=== PATIENT | male | born 1930 | race Caucasian/White ===

== ENCOUNTER 2018-05-09 11:24 | Inpatient (IN) | payer MEDICARE, OTHER ==
[2018-05-09] VITALS (12 sets, daily range): BP systolic 100–170; BP diastolic 39–81
[~2018-05-09] VITALS: Ht 167.6 cm; Wt 66.1 kg
[~2018-05-09 11:24] MED LIST: ASCO500T12 PO; BETA10003 PO; CHOL200085 PO; CYAN1TAB22 PO; EZET1TAB64 PO; FLAX10004 PO; METO50TA82 PO; MULT-257 PO; TRAN4TAB23 PO; VENE100T PO; ZINC50TA2 PO
--- NOTE | 2018-05-09 11:40 | NUR ---
PT IN BED. CARDIAC, BP AND O2 MONITORING IN PLACE. CALL LIGHT IN REACH. PT IN MASK TILL RESULTS OF BLOOD DRAW RESULT.
--- NOTE | 2018-05-09 11:57 | NUR ---
report taken from HAJA Moore at bedside. pt a&o, resps even and unlabored. pt denies pain at this time. sinus tach rate 90's on cardiac care unit nurse with no ectopy. call light in reach. family at bedside. pt and family updated with POC. awaiting lab and cxr results at this time.
[2018-05-09 11:58] LABS: INTERNATIONAL NORMALIZED RATIO 1.09 (0.93-1.1); PROTHROMBIN TIME 11.5 Seconds (9.6-11.5)
[2018-05-09 12:02] LABS: ALANINE AMINOTRANSFERASE 18 U/L (12-78); ALBUMIN 3.4 g/dL (3.4-5.0); ANION GAP 11 mmol/L (5-15); CHLORIDE 112 mmol/L (98-107); CREATININE 1.33 mg/dL (0.7-1.3); MEAN CORPUSCULAR HEMOGLOBIN 38.6 pg (27.5-34.5); MEAN CORPUSCULAR HGB CONC 36.2 g/dL (33.2-36.2); MEAN CORPUSCULAR VOLUME 106.5 fL (81-97)
[2018-05-09 12:04] LABS: RED CELL DISTRIBUTION WIDTH 29.1 % (9.4-14.8)
[2018-05-09 12:05] LABS: HEMOGRAM NOTE RECHECKED
[2018-05-09 12:06] LABS: ALKALINE PHOSPHATASE 78 U/L (45-117); BILIRUBIN,TOTAL 1.2 mg/dL (0.2-1.0); TOTAL PROTEIN 6.2 g/dL (6.4-8.2)
[2018-05-09] MEDS ORDERED: SAW PALMETTO (12:06)
--- NOTE | 2018-05-09 12:07 | NUR ---
EDMD Farris notified wbc 1.7, hemoglobin 4.3, hct 11.8, critical low platelet value pending . Protective isolation precautions in place.
[2018-05-09 12:09] LABS: TROPONIN I 0.179 ng/mL (0.000-0.045)
--- NOTE | 2018-05-09 12:17 | NUR ---
EDMD Brenton notified trop level 0.17. Pt states he has been SOB with exertion. EDMD notified. Per MD, no ddimer indicated at this time. EDMD at bedside to update pt and family with results.
[2018-05-09 12:23] LABS: MD YES; MEAN PLATELET VOLUME 10.6 fL (7.4-10.4)
[2018-05-09 12:25] LABS: PLATELET COUNT 21 x10^3/uL (130-400)
[2018-05-09 12:26] LABS: LYMPH#(MANUAL) 0.82 x10^3/uL (1-3.4); LYMPHS% (MANUAL) 48 % (22-44); NRBC % (MANUAL) 2 % (0-1); SEG#(MANUAL) 0.88 x10^3/uL (1.8-6.8); SEGS% (MANUAL) 52 % (42-75)
[2018-05-09 12:27] LABS: <PLATELET ESTIMATE> DECREASED; ANISOCYTOSIS 2+; OVALOCYTES 1+; POLYCHROMASIA 1+; TEAR DROPS 1+
[2018-05-09 12:29] LABS: MICROCYTOSIS 1+; SCHISTOCYTES 1+
[2018-05-09 12:32] LABS: <PLT MORPHOLOGY> NORMAL PLT MORPH
--- NOTE | 2018-05-09 12:37 | NUR ---
MAYRA MCALLISTER NOTIFIED PLATELET LEVEL 21. BLOOD CONSENT FORM SIGNED BY MD AND PATIENT.
--- NOTE | 2018-05-09 12:46 | NUR ---
BLOOD REQUESTED FROM BLOOD BANK
[2018-05-09] MEDS ORDERED: CALCIUM PO (12:55)
[2018-05-09] MEDS ORDERED: POTASSIUM PO (12:55)
--- NOTE | 2018-05-09 13:08 | NUR ---
BLOOD TRANSFUSION INITIATED, RN MONITORING PT 1:1 PER POLICY. PT A&O, RESPS EVEN AND UNLABORED, PT DENIES PAIN. SINUS TACH RATE 90'S ON MECHANICAL SPREADER OPERATOR, NO ECTOPY.
--- NOTE | 2018-05-09 13:23 | NUR ---
PT TOLERATING TRANSFUSION WELL. PT A&O, RESPS EVEN AND UNLABORED. PT DENIES PAIN. SINUS TACH RATE 90'S WITH NO ECTOPY ON MONITOR. PT DENIES ANY SOB/ITCHNIESS OR OTHER SX. PIV SITE CDI WITH NO SWELLING, REDNESS OR LEAKAGE. FAMILY AT BEDSIDE. AWAITING CARDIAC TELE ROOM ASSIGNMENT AND TRANSPORT.
[2018-05-09] MEDS ORDERED: ENALAPRILAT 1.25 MG/ML, 2ML IVPush PRN (14:00)
[2018-05-09] MEDS ORDERED: DOCUSATE 100 MG CAPSULE PO PRN (14:00)
[2018-05-09] MEDS ORDERED: NITROGLYCERIN 0.4 MG BOTTLE (25 TABS) SL PRN (14:00)
[2018-05-09] MEDS ORDERED: ONDANSETRON ODT 4 MG PO PRN (14:00)
[2018-05-09] MEDS ORDERED: ACETAMINOPHEN 325 MG TABLET PO PRN (14:00)
[2018-05-09] MEDS ORDERED: NITROGLYCERIN 0.4 MG/SPRAY SL PRN (14:00)
[2018-05-09 14:15] LABS: ABSOLUTE RETICS # 0.035 x10^6/uL (0.5-1.5); RETICULOCYTE COUNT % 3.09 % (0.5-1.5)
[2018-05-09 14:24] LABS: RED BLOOD COUNT 1.14 x10^6/uL (4.38-5.82)
--- NOTE | 2018-05-09 14:40 | NUR ---
PT CONTINUES TO TOLERATE BLOOD TRANSFUSION WELL. PT DENIES PAIN. PT A&O, RESPS EVEN AND UNLABORED. VSS. SINUS TACH RATE 90'S ON NEEDLE LOOM TENDER WITH NO ECTOPY. PT HAS NO COMPLAINTS AT THIS TIME.
[2018-05-09 15:27] LABS: FOLATE LEVEL > 20.0 ng/mL (3.1-17.5)
--- NOTE | 2018-05-09 15:50 | NUR ---
FIRST UNIT PRBCS COMPLETE. LUNG SOUNDS REMAIN CLEAR. PT A&O, RESPS EVEN AND UNLABORED. PIV SITE CDI WITH NO REDNESS/EDEMA. SECOND UNIT BLOOD REQUESTED. STILL AWAITING CARDIAC TELE BED ASSIGNMENT AT THIS TIME.
--- NOTE | 2018-05-09 16:17 | NUR ---
BLOOD TRANSFUSION INITIATED, RN MONITORING PT 1:1 PER POLICY. PT A&O, RESPS EVEN AND UNLABORED, PT DENIES PAIN. SINUS TACH RATE 90'S ON KILN LABOURER, NO ECTOPY.
--- NOTE | 2018-05-09 16:19 | NUR ---
pt urinating in urinal at this time. denies pain. sinus tach rate 100's on gambling monitor, no ectopy at this time.
--- NOTE | 2018-05-09 16:21 | NUR ---
REPORT GIVEN VINAYAK SMYTH.
--- NOTE | 2018-05-09 16:41 | NUR ---
SECOND UNIT PRBCS INFUSING. PIV SITE CDI WITH NO REDNESS OR EDEMA. PT DENIES ANY SX. PT A&O, RESPS EVEN AND UNLABORED. PT DENIES PAIN.
[2018-05-09] MEDS: METOPROLOL TARTRATE 50 MG TABLET PO SCH (20:40)
[2018-05-09] MEDS: SIMVASTATIN 40 MG TABLET PO SCH (20:40)
[2018-05-09] MEDS: SODIUM CHLORIDE 0.9% 1,000 ML IV SCH (20:41)
[2018-05-10] VITALS (9 sets, daily range): BP systolic 126–146; BP diastolic 57–75
[2018-05-10 05:04] LABS: MEAN CORPUSCULAR HEMOGLOBIN 33.8 pg (27.5-34.5); MEAN CORPUSCULAR VOLUME 96.7 fL (81-97); MEAN PLATELET VOLUME 10.6 fL (7.4-10.4); RED BLOOD COUNT 2.33 x10^6/uL (4.38-5.82)
[2018-05-10 05:11] LABS: ALANINE AMINOTRANSFERASE 30 U/L (12-78); ALBUMIN 3.1 g/dL (3.4-5.0); ANION GAP 10 mmol/L (5-15); CALCIUM 6.9 mg/dL (8.5-10.1); CHLORIDE 112 mmol/L (98-107); CHOLESTEROL, TOTAL 86 mg/dL (140-239); CREATININE 1.08 mg/dL (0.7-1.3)
[2018-05-10 05:14] LABS: ALKALINE PHOSPHATASE 77 U/L (45-117); BILIRUBIN,TOTAL 3.3 mg/dL (0.2-1.0); CHOL/HDL RATIO 2.5; HDL CHOL % 41 % (26-37); HDL CHOLESTEROL (DIRECT) 35 mg/dL (40-60); LDL CHOLESTEROL,CALCULATED 27 mg/dL (54-169); LDL/HDL RATIO 0.8 (0.5-3.0); TOTAL PROTEIN 5.6 g/dL (6.4-8.2); TRIGLYCERIDES 121 mg/dL (50-200); VLDL CHOLESTEROL 24 mg/dL (0-25)
[2018-05-10 05:14] LABS: PLATELET COUNT 21 x10^3/uL (130-400)
[2018-05-10 05:56] LABS: BASOPHILS % (AUTO) 0 % (0-1); EOSINOPHILS % (AUTO) 0 % (1-7); LYMPHOCYTES # (AUTO) 0.73 x10^3/uL (1-3.4); LYMPHOCYTES % (AUTO) 55 % (22-44); MD SCAN; MONOCYTES # (AUTO) 0.01 x10^3/uL (0.2-0.8); MONOCYTES % (AUTO) 1 % (2-9); NEUTROPHILS # (AUTO) 0.58 x10^3/uL (1.8-6.8); NEUTROPHILS % (AUTO) 44 % (42-75)
[2018-05-10] MEDS: MULTIVITS,STRESS FORMULA 1 TABLET PO SCH (08:54)
[2018-05-10] MEDS: SODIUM CHLORIDE 0.9% 1,000 ML IV SCH (08:54)
[2018-05-10] MEDS: MULTIVITAMINS/MINERALS TABLET PO SCH (08:54)
[2018-05-10] MEDS: EZETIMIBE 10 MG TABLET PO SCH (08:55)
[2018-05-10] MEDS: CHOLECALCIFEROL 5,000u TAB PO SCH (08:55)
[2018-05-10] MEDS: METOPROLOL TARTRATE 50 MG TABLET PO SCH ×2 (08:55→20:32)
[2018-05-10] MEDS: SIMVASTATIN 40 MG TABLET PO SCH (20:32)
[2018-05-11] VITALS (14 sets, daily range): BP systolic 103–152; BP diastolic 61–86
[2018-05-11 05:22] LABS: ANION GAP 9 mmol/L (5-15); CALCIUM 7.1 mg/dL (8.5-10.1); CHLORIDE 114 mmol/L (98-107); MEAN CORPUSCULAR HEMOGLOBIN 34.8 pg (27.5-34.5); MEAN CORPUSCULAR HGB CONC 35.8 g/dL (33.2-36.2); MEAN CORPUSCULAR VOLUME 97.2 fL (81-97); RED BLOOD COUNT 1.69 x10^6/uL (4.38-5.82); RED CELL DISTRIBUTION WIDTH 22.1 % (9.4-14.8)
[2018-05-11 05:23] LABS: CREATININE 1.12 mg/dL (0.7-1.3)
[2018-05-11 05:31] LABS: PLATELET COUNT 20 x10^3/uL (130-400)
[2018-05-11 06:19] LABS: BASOPHILS % (AUTO) 0 % (0-1); EOSINOPHILS # (AUTO) 0.01 x10^3/uL (0-0.4); EOSINOPHILS % (AUTO) 1 % (1-7); LYMPHOCYTES # (AUTO) 0.67 x10^3/uL (1-3.4); LYMPHOCYTES % (AUTO) 55 % (22-44); MD MORPH REVIEW ONLY; MONOCYTES # (AUTO) 0.01 x10^3/uL (0.2-0.8); MONOCYTES % (AUTO) 1 % (2-9); NEUTROPHILS # (AUTO) 0.52 x10^3/uL (1.8-6.8); NEUTROPHILS % (AUTO) 43 % (42-75)
[2018-05-11 06:20] LABS: ANISOCYTOSIS 2+
[2018-05-11 06:21] LABS: MICROCYTOSIS 1+; OVALOCYTES 1+; POLYCHROMASIA 1+; SCHISTOCYTES 1+
[2018-05-11 06:22] LABS: <PLATELET ESTIMATE> DECREASED; <PLT MORPHOLOGY> NORMAL PLT MORPH
[2018-05-11] MEDS ORDERED: MAGNESIUM SULFATE PMX 2GM/50ML 50 ML IV ONE (08:00)
[2018-05-11] MEDS ORDERED: PANTOPRAZOLE 80 MG in SODIUM CHLORIDE 0.9% 50 ML IV ONE (09:00)
[2018-05-11] MEDS: MULTIVITS,STRESS FORMULA 1 TABLET PO SCH (09:28)
[2018-05-11] MEDS: CHOLECALCIFEROL 5,000u TAB PO SCH (09:28)
[2018-05-11] MEDS: MULTIVITAMINS/MINERALS TABLET PO SCH (09:28)
[2018-05-11] MEDS: METOPROLOL TARTRATE 50 MG TABLET PO SCH ×2 (09:28→19:59)
[2018-05-11] MEDS: EZETIMIBE 10 MG TABLET PO SCH (09:37)
[2018-05-11 09:44] LABS: ALBUMIN 2.4 g/dL (3.4-5.0); BILIRUBIN, DIRECT 0.3 mg/dL (0.1-0.2)
[2018-05-11 09:46] LABS: BILIRUBIN,INDIRECT 1.3 mg/dL (0.0-2.0); BILIRUBIN,TOTAL 1.6 mg/dL (0.2-1.0); TOTAL PROTEIN 4.5 g/dL (6.4-8.2)
[2018-05-11] MEDS: PANTOPRAZOLE 80 MG in SODIUM CHLORIDE 0.9% 100 ML IV SCH ×2 (10:40→20:10)
[2018-05-11 18:25] LABS: OCCULT BLOOD POSITIVE (NEGATIVE)
[2018-05-11] MEDS: SIMVASTATIN 40 MG TABLET PO SCH (19:58)
[2018-05-12] VITALS (7 sets, daily range): BP systolic 125–152; BP diastolic 61–74
[2018-05-12] MEDS: PANTOPRAZOLE 80 MG in SODIUM CHLORIDE 0.9% 100 ML IV SCH ×2 (04:55→15:48)
[2018-05-12 05:26] LABS: ALBUMIN 2.6 g/dL (3.4-5.0); ANION GAP 6 mmol/L (5-15); CALCIUM 7.2 mg/dL (8.5-10.1); CHLORIDE 117 mmol/L (98-107)
[2018-05-12 05:30] LABS: ALANINE AMINOTRANSFERASE 26 U/L (12-78); ALKALINE PHOSPHATASE 62 U/L (45-117); BILIRUBIN,TOTAL 2.5 mg/dL (0.2-1.0); CREATININE 1.17 mg/dL (0.7-1.3); TOTAL PROTEIN 4.8 g/dL (6.4-8.2)
[2018-05-12 05:40] LABS: MEAN CORPUSCULAR HEMOGLOBIN 32.6 pg (27.5-34.5); MEAN CORPUSCULAR HGB CONC 35.4 g/dL (33.2-36.2); MEAN CORPUSCULAR VOLUME 92.1 fL (81-97); MEAN PLATELET VOLUME 9.6 fL (7.4-10.4); RED BLOOD COUNT 2.28 x10^6/uL (4.38-5.82); RED CELL DISTRIBUTION WIDTH 17.4 % (9.4-14.8)
[2018-05-12 05:57] LABS: PLATELET COUNT 36 x10^3/uL (130-400)
[2018-05-12 06:19] LABS: MD YES
[2018-05-12 06:22] LABS: EOS#(MANUAL) 0.02 x10^3/uL (0.0-0.4); EOS% (MANUAL) 1 % (1-7); LYMPH#(MANUAL) 0.84 x10^3/uL (1-3.4); LYMPHS% (MANUAL) 56 % (22-44); MONOS#(MANUAL) 0.05 x10^3/uL (0.3-2.7); MONOS% (MANUAL) 3 % (2-9); NRBC % (MANUAL) 1 % (0-1); SEGS% (MANUAL) 40 % (42-75)
[2018-05-12 06:23] LABS: ANISOCYTOSIS 1+; MICROCYTOSIS 1+; OVALOCYTES 1+; POLYCHROMASIA 1+
[2018-05-12 06:25] LABS: SCHISTOCYTES 1+
[2018-05-12 06:26] LABS: <PLATELET ESTIMATE> DECREASED; <PLT MORPHOLOGY> NORMAL PLT MORPH
[2018-05-12] MEDS: MULTIVITS,STRESS FORMULA 1 TABLET PO SCH (07:49)
[2018-05-12] MEDS: MULTIVITAMINS/MINERALS TABLET PO SCH (07:50)
[2018-05-12] MEDS: EZETIMIBE 10 MG TABLET PO SCH (07:50)
[2018-05-12] MEDS: CHOLECALCIFEROL 5,000u TAB PO SCH (07:50)
[2018-05-12] MEDS: METOPROLOL TARTRATE 50 MG TABLET PO SCH ×2 (07:50→20:45)
[2018-05-12] MEDS ORDERED: LEVO25TA45 PO (07:59)
[2018-05-12] MEDS: LEVOTHYROXINE 25 MCG TABLET PO SCH (10:38)
[2018-05-12] MEDS: SIMVASTATIN 40 MG TABLET PO SCH (20:45)
[2018-05-13 01:30] VITALS: BP 152/64
[2018-05-13] MEDS: PANTOPRAZOLE 80 MG in SODIUM CHLORIDE 0.9% 100 ML IV SCH (01:36)
[2018-05-13 01:55] LABS: MEAN CORPUSCULAR HEMOGLOBIN 32.6 pg (27.5-34.5); MEAN CORPUSCULAR HGB CONC 35.5 g/dL (33.2-36.2); MEAN PLATELET VOLUME 9.5 fL (7.4-10.4); RED BLOOD COUNT 2.73 x10^6/uL (4.38-5.82); RED CELL DISTRIBUTION WIDTH 16.4 % (9.4-14.8)
[2018-05-13 01:57] LABS: PLATELET COUNT 34 x10^3/uL (130-400)
[2018-05-13 01:58] LABS: ALANINE AMINOTRANSFERASE 27 U/L (12-78); ALBUMIN 2.8 g/dL (3.4-5.0); ANION GAP 5 mmol/L (5-15); CALCIUM 7.2 mg/dL (8.5-10.1); CHLORIDE 114 mmol/L (98-107); CREATININE 1.14 mg/dL (0.7-1.3)
[2018-05-13 01:59] LABS: MD YES
[2018-05-13 02:01] LABS: ALKALINE PHOSPHATASE 75 U/L (45-117); BILIRUBIN,TOTAL 2.1 mg/dL (0.2-1.0); TOTAL PROTEIN 5.2 g/dL (6.4-8.2)
[2018-05-13 02:14] LABS: BAND#(MANUAL) 0.01 x10^3/uL; BANDS%(MANUAL) 1 % (0-7); LYMPH#(MANUAL) 0.86 x10^3/uL (1-3.4); LYMPHS% (MANUAL) 66 % (22-44); SEG#(MANUAL) 0.43 x10^3/uL (1.8-6.8); SEGS% (MANUAL) 33 % (42-75)
[2018-05-13 02:15] LABS: <PLATELET ESTIMATE> DECREASED; <PLT MORPHOLOGY> NORMAL PLT MORPH; ANISOCYTOSIS 1+; MICROCYTOSIS 1+; OVALOCYTES 1+; POLYCHROMASIA 1+; SCHISTOCYTES 1+
[2018-05-13] MEDS: LEVOTHYROXINE 25 MCG TABLET PO SCH (05:21)
[2018-05-13 07:14] VITALS: BP 149/67
[2018-05-13] MEDS: TBO-FILGRASTIM 480 MCG/0.8 ML SQ SCH (10:13)
[2018-05-13] MEDS: MULTIVITAMINS/MINERALS TABLET PO SCH (10:15)
[2018-05-13] MEDS: CHOLECALCIFEROL 5,000u TAB PO SCH (10:15)
[2018-05-13] MEDS: MULTIVITS,STRESS FORMULA 1 TABLET PO SCH (10:15)
[2018-05-13] MEDS: EZETIMIBE 10 MG TABLET PO SCH (10:15)
[2018-05-13] MEDS: METOPROLOL TARTRATE 50 MG TABLET PO SCH ×2 (10:16→20:30)
[2018-05-13] MEDS: PANTOPROZOLE 40MG TABLET PO SCH (11:53)
[2018-05-13 13:38] VITALS: BP 146/69
[2018-05-13] MEDS ORDERED: SODIUM CHLORIDE NASAL SPRAY 45ML BOTTLE NAS PRN (14:00)
[2018-05-13] MEDS: SIMVASTATIN 40 MG TABLET PO SCH (20:30)
[2018-05-13 20:42] VITALS: BP 154/64
[2018-05-14 01:44] VITALS: BP 147/59
[2018-05-14 05:39] LABS: MEAN CORPUSCULAR HGB CONC 34.2 g/dL (33.2-36.2); MEAN CORPUSCULAR VOLUME 93.6 fL (81-97); RED BLOOD COUNT 2.65 x10^6/uL (4.38-5.82); RED CELL DISTRIBUTION WIDTH 16.2 % (9.4-14.8)
[2018-05-14] MEDS: LEVOTHYROXINE 25 MCG TABLET PO SCH (05:44)
[2018-05-14] MEDS: PANTOPROZOLE 40MG TABLET PO SCH (05:44)
[2018-05-14 05:45] LABS: ALBUMIN 2.7 g/dL (3.4-5.0); ANION GAP 5 mmol/L (5-15); CALCIUM 7.7 mg/dL (8.5-10.1); CHLORIDE 111 mmol/L (98-107)
[2018-05-14 06:08] LABS: MEAN PLATELET VOLUME 9.5 fL (7.4-10.4)
[2018-05-14 06:10] LABS: PLATELET COUNT 24 x10^3/uL (130-400)
[2018-05-14 06:11] LABS: MD YES
[2018-05-14 06:17] LABS: BAND#(MANUAL) 0.16 x10^3/uL; BANDS%(MANUAL) 10 % (0-7); BASOS#(MANUAL) 0.02 x10^3/uL (0-0.1); BASOS% (MANUAL) 1 % (0-1); EOS#(MANUAL) 0.02 x10^3/uL (0.0-0.4); EOS% (MANUAL) 1 % (1-7); LYMPH#(MANUAL) 0.78 x10^3/uL (1-3.4); LYMPHS% (MANUAL) 49 % (22-44); REACTIVE LYMPHS # (MANUAL) 0.03 x10^3/uL (0-0); REACTIVE LYMPHS % (MANUAL) 2 % (0-0); SEG#(MANUAL) 0.59 x10^3/uL (1.8-6.8); SEGS% (MANUAL) 37 % (42-75)
[2018-05-14 06:18] LABS: ANISOCYTOSIS 2+
[2018-05-14 06:19] LABS: OVALOCYTES 1+; POLYCHROMASIA 1+
[2018-05-14 06:20] LABS: <PLATELET ESTIMATE> DECREASED; <PLT MORPHOLOGY> NORMAL PLT MORPH; HYPOCHROMIA 1+
[2018-05-14 06:21] LABS: TOXIC GRAN 1+
[2018-05-14] MEDS: CHOLECALCIFEROL 5,000u TAB PO SCH (09:18)
[2018-05-14] MEDS: EZETIMIBE 10 MG TABLET PO SCH (09:18)
[2018-05-14] MEDS: METOPROLOL TARTRATE 50 MG TABLET PO SCH (09:18)
[2018-05-14] MEDS: MULTIVITAMINS/MINERALS TABLET PO SCH (09:18)
[2018-05-14] MEDS: MULTIVITS,STRESS FORMULA 1 TABLET PO SCH (09:18)
[2018-05-14] MEDS: TBO-FILGRASTIM 480 MCG/0.8 ML SQ SCH (09:45)
[2018-05-14] MEDS ORDERED: PANT40TA5 PO (10:07)
[2018-05-14] MEDS ORDERED: LEVO25TA2 PO (10:08)
[2018-05-14] MEDS ORDERED: METO50TA82 PO (14:44)
[2018-05-31] MEDS ORDERED: LEVO75TA PO (14:05)
== END 2018-05-14 11:25 | disposition home or self-care (01) | DRG 808 ==
LOC: ED 11:56 → EDIP 12:50 → 5SO 17:10 → 4WST 05-13 22:09
PROVIDERS: ADMIT Internal Medicine; ATTEND Internal Medicine
PROC: 30233R1 Transfusion of Nonautologous Platelets into Peripheral Vein, Percutaneous Approach (ICD-10-PCS; principal; 2018-05-11)
PROC: 30233N1 Transfusion of Nonautologous Red Blood Cells into Peripheral Vein, Percutaneous Approach (ICD-10-PCS; 2018-05-11)
DX: D61.810 Antineoplastic chemotherapy induced pancytopenia (principal); N17.0 Acute kidney failure with tubular necrosis; K92.2 Gastrointestinal hemorrhage, unspecified; E87.2 Acidosis; C95.00 Acute leukemia of unspecified cell type not having achieved remission; I47.1 Supraventricular tachycardia; D61.818 Other pancytopenia; D62 Acute posthemorrhagic anemia; D53.9 Nutritional anemia, unspecified; E78.5 Hyperlipidemia, unspecified; I10 Essential (primary) hypertension; I27.20 Pulmonary hypertension, unspecified; N40.0 Benign prostatic hyperplasia without lower urinary tract symptoms; S60.512A Abrasion of left hand, initial encounter; W18.30XA Fall on same level, unspecified, initial encounter; Z66 Do not resuscitate; Z82.1 Family history of blindness and visual loss; Z82.49 Family history of ischemic heart disease and other diseases of the circulatory system; I25.2 Old myocardial infarction; Z92.21 Personal history of antineoplastic chemotherapy; Z87.891 Personal history of nicotine dependence; Y93.89 Activity, other specified; Y92.89 Other specified places as the place of occurrence of the external cause; T45.1X5A Adverse effect of antineoplastic and immunosuppressive drugs, initial encounter
CPT/HCPCS: 36415; 36430; 71045; 80048; 80053; 80061; 80076; 82040; 82272; 82607; 82746; 83735; 83880; 84443; 84484; 85014; 85018; 85025; 85045; 85610; 86850; 86900; 86923; 93005; 93306; 99285; G0378; C9113; J1447; J3475; J7030; P9037; P9040